=== PATIENT | male | born 1960 | race Caucasian/White ===

== ENCOUNTER 2018-01-18 20:03 | Emergency (ER) | payer MEDICAID ==
[2018-01-18] MEDS ORDERED: diphenhydrAMINE 50 MG/ML SDV IVPUSH ONE (20:40)
[2018-01-18] MEDS ORDERED: methylPREDNISolone Sodium Succinate 125 MG/2 ML SDV IV ONE (20:40)
[2018-01-18] MEDS ORDERED: Famotidine 20 MG/2 ML SDV IVPUSH ONE (20:40)
[2018-01-18] MEDS ORDERED: EPINEPHrine 1 MG/ML SDV IM ONE (20:40)
[2018-01-18] MEDS ORDERED: Sodium Chloride 0.9% 1,000 ML IV SCH (20:45)
[2018-01-18] MEDS ORDERED: Albuterol 0.083% 2.5 MG/3 ML Neb Soln NEB SCH (20:45)
--- NOTE | 2018-01-18 20:55 | EDM.PDOC ---
ED HPI GENERAL MEDICAL PROBLEM - General Chief Complaint: Allergic Reaction Stated Complaint: ALLERGIC REACTION, HARD TIME BREATHING Time Seen by Provider: 01/18/18 20:24 Source of Information: Reports: Patient History Limitations: Reports: No Limitations - History of Present Illness INITIAL COMMENTS - FREE TEXT/NARRATIVE: Allergic Reaction: this is a 58 year old male presents to ER for allergic reaction. He reports today at 7:30 pm had a sudden onset of hives. He reports took two Benadryl 25mg, which usually takes care of reactions, but hives spread. breathing feeling a little tight. was mowing the grass today, horse fly bites. nothing unusual in activities or foods. Allergic reaction; reports hives more frequently this years, last episode about 2 weeks ago. resolved with Benadryl denies chest pain, shortness of breath, fever, cough, nausea, vomiting, or weakness no chronic health conditions no medications does not smoke tobacco, quit 2 years ago, was a 2 pack per day for 20 years. had a complete physical and testing by [facility] in November 2017 for vision changes, no cause was found, healthy new runner, finished a 5 K last week. Onset: Today, Sudden Onset Date: 01/18/18 Onset Time: 19:00 Duration: Constant Location: Reports: Generalized Quality: Reports: Same as Previous Episode Severity: Moderate Improves with: Reports: None Worsens with: Reports: None Context: Reports: Other (hives) Associated Symptoms: Reports: Shortness of Breath Treatments INFORMATION SYSTEMS PLANNER: Reports: Other (see below) Other Treatments INFORMATION SYSTEMS PLANNER: Benadryl 50mg po - Related Data Allergies Allergy/AdvReac Type Severity Reaction Status Date / Time No Known Allergies Allergy Verified 01/18/18 20:50 Social & Family History - Tobacco Use Smoking Status *Q: Former Smoker Tobacco Use Within Last Twelve Months: No ED ROS ALLERGIC REACTION - Review of Systems Review Of Systems: See Below Constitutional: Reports: Other (chest tightness. severe itch from hives) HEENT: Reports: No Symptoms Respiratory: Reports: Shortness of Breath Cardiovascular: Reports: No Symptoms Endocrine: Reports: No Symptoms GI/Abdominal: Reports: No Symptoms : Reports: No Symptoms Musculoskeletal: Reports: No Symptoms Skin: Reports: Urticaria (diffuse hive from chest to ankles.) Neurological: Reports: No Symptoms Psychiatric: Reports: No Symptoms Hematologic/Lymphatic: Reports: No Symptoms Immunologic: Reports: Other (hx of hives of unknown origin) ED EXAM GENERAL NO PERIP PULSE - Physical Exam Exam: See Below Exam Limited By: No Limitations General Appearance: Alert, WD/WN, No Apparent Distress Eye Exam: Bilateral Eye: Normal Inspection Ears: Normal External Exam, Normal Canal, Hearing Grossly Normal, Normal TMs Nose: Normal Inspection, Normal Mucosa, No Blood Throat/Mouth: Normal Inspection, Normal Lips, Normal Teeth, Normal Gums, Normal Oropharynx, Normal Voice, No Airway Compromise Head: Atraumatic, Normocephalic Neck: Normal Inspection, Supple, Non-Tender, Full Range of Motion Respiratory/Chest: No Respiratory Distress, Lungs Clear, Normal Breath Sounds, No Accessory Muscle Use, Chest Non-Tender Cardiovascular: Normal Peripheral Pulses, Regular Rate, Rhythm, No Edema, No Gallop, No JVD, No Murmur, No Rub GI/Abdominal: Normal Bowel Sounds, Soft, Non-Tender (Male) Exam: Deferred Rectal (Males) Exam: Deferred Back Exam: Full Range of Motion Extremities: Normal Range of Motion, No Pedal Edema, Normal Capillary Refill Neurological: No Motor/Sensory Deficits Psychiatric: Normal Affect, Normal Mood Skin Exam: Warm, Dry, Rash (diffuse hives noted from chest to ankle. large raised irregular shape, warm to touch, pruritic) Lymphatic: No Adenopathy Course - Vital Signs Last Recorded V/S: Last Vital Signs Temp 36.1 C 01/18/18 21:29 Pulse 88 01/18/18 21:29 Resp 18 01/18/18 21:29 BP 111/41 L 01/18/18 21:29 Pulse Ox 96 01/18/18 21:29 - Orders/Labs/Meds Orders: Active Orders 24 hr Category Date Time Status Albuterol [Proventil Neb Soln] Med 01/18/18 20:45 Active 2.5 mg NEB Q4H Sodium Chloride 0.9% [Normal Saline] 1,000 ml Med 01/18/18 20:45 Active IV ASDIRECTED Medication Orders Albuterol (Proventil Neb Soln) 2.5 mg NEB Q4H KRISTIAN Last Admin: 01/18/18 20:51 Dose: 2.5 mg Sodium Chloride (Normal Saline) 1,000 mls @ 999 mls/hr IV ASDIRECTED KRISTIAN Last Admin: 01/18/18 21:01 Dose: 999 mls/hr Meds: Medications Generic Name Dose Route Start Last Admin Trade Name Freq PRN Reason Stop Dose Admin Albuterol 2.5 mg 01/18/18 20:45 01/18/18 20:51 Proventil Neb Soln NEB 2.5 mg Q4H KRISTIAN Administration Sodium Chloride 1,000 mls @ 999 mls/hr 01/18/18 20:45 01/18/18 21:01 Normal Saline IV 999 mls/hr ASDIRECTED KRISTIAN Administration Discontinued Medications Generic Name Dose Route Start Last Admin Trade Name Freq PRN Reason Stop Dose Admin Diphenhydramine HCl 25 mg 01/18/18 20:40 01/18/18 21:04 Benadryl IVPUSH 01/18/18 20:41 25 mg ONETIME ONE Administration Epinephrine HCl 0.3 mg 01/18/18 20:40 01/18/18 20:52 Adrenalin IM 01/18/18 20:41 0.3 mg ONETIME ONE Administration Famotidine 40 mg 01/18/18 20:40 01/18/18 21:08 Pepcid IVPUSH 01/18/18 20:41 40 mg ONETIME ONE Administration Methylprednisolone Sodium Succinate 125 mg 01/18/18 20:40 01/18/18 21:11 Solu-Medrol IV 01/18/18 20:41 125 mg ONETIME ONE Administration - Re-Assessments/Exams Free Text/Narrative Re-Assessment/Exam: 01/18/18 20:59 hives of unknown cause -due to diffuse hives and feeling of chest tightness, will treat aggressively. -IV fluids, NS 999ml/hr -Eppi 0.3mg IM -IV Solu medrol 125mg -IV Pepcid 40mg -IV Benadryl 25mg -Albuterol neb 2.5mg now Monitor closely. 01/18/18 21:25 improving with medication; decreasing hives, breath issue resolved patient reports feeling better 01/18/18 22:21 hives on abdomen and arms resolved, legs almost gone, feeling much improved ready for discharge to home Departure - Departure Time of Disposition: 22:22 Disposition: Home, Self-Care 01 Condition: Good Clinical Impression: Hives of unknown origin Allergic reaction Qualifiers: Encounter type: initial encounter Qualified Code(s): T78.40XA - Allergy, unspecified, initial encounter - Discharge Information Instructions: Epinephrine Injection, Hives, [id number] Referrals: PCP,None [Primary Care Provider] - Forms: ED Department Discharge Care Plan Goals: Allergic Reaction of Unknown cause -continue over the counter Benadryl 25mg every 4 to 6 hours for next 3 to 5 -Steroids as directed daily for 10 days -start Loratadine 10mg po daily for allergies -start Pepcid as directed -Eppi pen as directed avoid any heavy physical activities or exercise, such as running, for next 5 days, as this can make hives return or become worse advise to evaluated any triggers that may cause hives make an appointment with Primary Care Provider for recheck in next 10 days Return to ER or call 911, if experiences worsen hives, shortness of breath, chest pain, dizziness, weakness or any concerns. - Problem List & Annotations (1) Allergic reaction SNOMED Code(s): 167883457 Code(s): T78.40XA - ALLERGY, UNSPECIFIED, INITIAL ENCOUNTER Status: Acute Priority: High Current Visit: Yes Qualifiers: Encounter type: initial encounter Qualified Code(s): T78.40XA - Allergy, unspecified, initial encounter (2) Hives of unknown origin SNOMED Code(s): 125674986 Code(s): L50.9 - URTICARIA, UNSPECIFIED Status: Acute Priority: High Current Visit: Yes - Problem List Review Problem List Initiated/Reviewed/Updated: Yes - My Orders Last 24 Hours: My Active Orders 01/18/18 20:45 Albuterol [Proventil Neb Soln] 2.5 mg NEB Q4H Sodium Chloride 0.9% [Normal Saline] 1,000 ml IV ASDIRECTED - Assessment/Plan Last 24 Hours: My Active Orders 01/18/18 20:45 Albuterol [Proventil Neb Soln] 2.5 mg NEB Q4H Sodium Chloride 0.9% [Normal Saline] 1,000 ml IV ASDIRECTED Plan: Allergic Reaction of Unknown cause -continue over the counter Benadryl 25mg every 4 to 6 hours for next 3 to 5 -Steroids as directed daily for 10 days -start Pepcid daily -start Loratadine 10mg po daily for allergies -Eppi pen as directed avoid any heavy physical activities or exercise, such as running, for next 5 days, as this can make hives return or become worse advise to evaluated any triggers that may cause hives make an appointment with Primary Care Provider for recheck in next 10 days Return to ER or call 911, if experiences worsen hives, shortness of breath, chest pain, dizziness, weakness or any concerns.
== END 2018-01-18 22:44 | disposition home or self-care (01) ==
LOC: JP.ED 20:03
DX: L50.0 Allergic urticaria (principal); Z87.891 Personal history of nicotine dependence
CPT/HCPCS: 94640; 96361; 96372; 96374; 96375; 99284; J0171; J1200; J2930; J7030; S0028